=== PATIENT | male | born 1960 | race Caucasian/White ===

== ENCOUNTER 2021-05-16 11:38 | Outpatient (REF) | payer OTHER, SELFPAY ==
[2021-05-16 14:32] LABS: Binax Internal Control QC Valid; Binax Lot number: 9864; Binax Now Covid-19 Ag Positive (Negative)
== END 2021-05-16 11:39 | disposition home or self-care (01) ==
LOC: HO.LAB 11:38
PROVIDERS: Visit Provider Internal Medicine
DX: Z20.822 Contact with and (suspected) exposure to COVID-19 (principal)
CPT/HCPCS: 36415; C9803

== ENCOUNTER → 2025-01-25 08:48 | Outpatient (BNVA) | payer OTHER, SELFPAY | PROVIDERS: PCP Internal Medicine; Visit Provider Physician Assistant Medical | DX: M71.162 Other infective bursitis, left knee (principal) | CPT/HCPCS: 99203 ==

== ENCOUNTER → 2025-01-28 07:51 | Outpatient (BNVA) | payer OTHER, SELFPAY | PROVIDERS: PCP Internal Medicine; Visit Provider Physician Assistant Medical | DX: M71.162 Other infective bursitis, left knee (principal); Z02.79 Encounter for issue of other medical certificate | CPT/HCPCS: 99213 ==

== ENCOUNTER 2025-04-20 15:08 | Outpatient (AMB) | payer BC, SELFPAY ==
--- NOTE | 2025-04-20 15:09 | A.PHYSOV_ITS ---
Vital Signs 04/20/25 15:10 Height 5 ft 6.5 in Weight 175 lb BMI 27.8 Intake Visit Reasons: Back pain Intake Note: Patient is a 64 year old male here for back pain. 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 Redding is a 64-year-old male seen in evaluation today for lumbar radiculitis to bilateral lower extremities. He underwent bilateral L4 TFESI 12/11/2024. He reports 3-1/2 months of 80% reduction of his pain. Patient's pain has returned despite performing physician directed home exercise plan and using his medications as prescribed. Patient is requesting repeat bilateral L4 TFESI. L5-S1 PAPI has not been helpful. An MRI of the patient does have severe neuroforaminal stenosis at L4-5 with nerve root compression. He has a pain level today of 8/10. [facility] Surgical History (Updated 04/19/25 @ 10:20 by Halle Sparks MA) History of carpal tunnel surgery Social History Alcohol intake: current Alcohol intake frequency: does not drink Patient Tobacco Use Status: Former Tobacco user Review of Systems Narrative Lumbar radiculopathy bilateral lower extremities [id number]. No incontinence, saddle anesthesia urinary retention. Physical Exam Exam Exam: Lumbar Spine: Examination of his lumbar spine, there is no visible swelling or deformity. He is tender to left lower lumbar facets. Has full range of motion of his lumbar spine. He does have an increase in pain with facet loading. Special Tests: Lhermittes sign was negative Heel Toe walk is normal Left straight leg raise: Negative Right straight leg raise: Positive right Special tests Katheryn test is negative Ganslen's test is negative SI Joint compression test negative Aishwarya test negative Piriformis stretch is negative Lower Extremities: Full range of motion bilateral lower extremities. No calf pain or edema. Neuro: Sensation: Intact to lower extremities bilaterally Strength L2 (Psoas): 5/5 on the left and 5/5 on the right. L3 (Quads): 5/5 on the left and 5/5 on the right. L4 (Ant tibialis): 5/5 on the left and 5/5 on the right. L5 (EHL) 5/5 on the left and 5/5 on the right. S1 (Gastroc): 5/5 on the left and 5/5 on the right. DTR L4: (Patellar) Left 1 Right 1 S1: (Achilles) Left 1 Right 1 Babinski Downgoing No pathologic clonus. No involuntary movement. Vital Signs: BMI result Body Mass Index 27.8 Assessment & Plan Assessment & Plan (1) Lumbar radiculopathy: Code(s): M54.16 - Radiculopathy, lumbar region Category: Medical (2) Lumbar spondylosis: Code(s): M47.816 - Spondylosis without myelopathy or radiculopathy, lumbar region Category: Medical Plan Mr. Redidng is a 64-year-old male seen in evaluation today for lumbar radiculitis to bilateral lower extremities right greater than left. She responded very well to bilateral L4 TFESI in December. Patient has been performing physician directed home exercise plan and using his medications as prescribed. At this point I recommend repeating the bilateral L4 TFESI and he is eager to proceed. We will obtain prior authorization for his injection and contact him once we have done so. We discussed the benefits of proper nutrition and exercise to maintain a healthy body weight to improve longevity and function. We also discussed the benefits of proper lifting techniques, core strengthening and proper posture. Thank you for allowing me to participate in the care of your patient. Coding Level of Care Code Est Pt Level 3 (59732) Diagnoses Lumbar radiculopathy M54.16 Lumbar spondylosis M47.816
[2025-04-20 15:10] VITALS: BMI 27.8
--- OUTSIDE RECORDS SUMMARY | 2025-04-20 21:30 | XMS_ITS ---
Author Name [facility] Organization Unknown Care Team Organization Name Specialty Phone Email Start Date End Da te [facility] 07/18/202212/11 [facility] 03/20/20222023
--- OUTSIDE RECORDS SUMMARY | 2025-04-20 21:30 | XMS_ITS | Clinical Summary ---
Author Organization [address] [facility] Address [address] [place] [address] Phone Care Team Providers Care Wax Blender Name Role Phone Mayo Harper MD Primary Care Provider Allergies No known active allergies Medications blood-glucose meter kit Use to test blood sugars three times a day 03/11/20 19 Active FREESTYLE LANCETS MISC Use to test blood sugar 3 times a day before meals. 11/19/19 14 Active blood sugar diagnostic (FreeStyle Lite Strips) test strip TEST 3 TIMES A DAY BEFORE MEALS 09/25/19 24 Active magnesium oxide (MAG-OX) 400 mg (241.3 elemental magnesium) tablet Take 1 Tablet by mouth 2 times daily. 01/22/20 24 Active glucose blood test strip Use as instructed 100 each 11 07/29/19 25 026 Active blood-glucose meter misc Use daily or as directed for monitoring of diabetes. 1 each 07/29/19 25 026 Active acetaminophen (TYLENOL 8 HOUR) 650 mg 8 hr tablet Take 1 tablet (650 mg total) by mouth 3 (three) times a day if needed for headaches. Do not crush, chew, or split. 30 tablet 12/24/19 25 Active omeprazole OTC (PriLOSEC OTC) 20 mg EC tablet Take 1 tablet (20 mg total) by mouth 1 (one) time each day. Do not crush, chew, or split. 01/08/20 25 Active lisinopriL (PRINIVIL,ZEST RIL) 10 mg tablet TAKE 1 TABLET BY MOUTH TWICE A DAY 180 tablet 1 03/19/20 25 Active atorvastatin (LIPITOR) 40 mg tablet TAKE 1 TABLET BY MOUTH 1 TIME EACH DAY. 90 tablet 03/22/20 25 Active metFORMIN (GLUCOPHAGE) 500 mg tablet TAKE 1 TABLET BY MOUTH TWICE A DAY WITH MEALS 180 tablet 03/22/20 25 Active cholecalcifero l (Vitamin D3) 50 mcg (2,000 unit) tablet Take 1 tablet (2,000 Units total) by mouth 1 (one) time each day. 90 tablet 04/01/20 25 Active metFORMIN (GLUCOPHAGE) 500 mg tablet Take 1 tablet (500 mg total) by mouth 2 (two) times a day with meals. 180 tablet 1 07/09/19 25 025 Discontinued atorvastatin (LIPITOR) 40 mg tablet TAKE 1 TABLET BY MOUTH 1 TIME EACH DAY. 90 tablet 1 09/29/19 25 025 Discontinued Vitamin D3 50 mcg (2,000 unit) tablet TAKE 1 TABLET BY MOUTH EVERY DAY 90 tablet 12/24/19 25 025 Discontinued(Re order) Active Problems Problem Noted Date Diagnosed Date Gastritis 03/24/2024 Globus sensation 03/24/2024 Heartburn 03/24/2024 Postprandial epigastric pain 03/24/2024 Hypomagnesemia 09/23/2023 Chronic midline low back pain without sciatica 0 06/11/2022 Osteoarthritis of spine with radiculopathy, lumb ar region 04/08/2019 Spondylolisthesis at L4-L5 level 04/08/2019 Gastric polyp 08/26/2017 Overview (03/24/2024): Endoscopy 08/22/17 - gastric polyps removed, follow-up GI clinic in 4 weeks BPH (benign prostatic hyperplasia) 02/14/2015 Carpal tunnel syndrome 11/18/2013 Overview (03/24/2024): Hand Surgery - 05/20/15 - left endoscopic carpal tunnel release Overweight 05/08/2013 Primary hypertension 08/22/2011 Assessment & Plan (07/09/2024 2:38 PM EST): Blood pressure is slightly elevated in the office today. Patient is positive for URI and persistent coughing, which could be contributing to his elevated blood pressure. Patient is to refrain from taking OTC cough medicine. Will reevaluate blood pressure at next office visit. In the meantime he is to maintain a low-salt diet. Diabetes mellitus type 2 with neurological manif estations 10/24/2010 Overview (03/24/2024): Last Assessment & Plan: Checking Your Blood Sugars Please check your blood sugars every day. Please check your sugars at the following times of day: before breakfast and after dinner Your Blood Sugar Goals Pre Meal: 90-130 2 hours after meals: 110-160 Bedtime: 110-150 Use the Results Bring your glucometer to every appointment Write your fingerstick blood sugars down on a log sheet or record book. Bring them to your appointment Look for patterns in the numbers. The results help you and your provider make decisions about your diabetes treatment plan. Your Results and your Goals Your Result / Date of Completion Your Goal / How Often to Assess Component Value Date HGBA1C 6.7 03/20/2011 Less than 7%--- 2-4 times per year BP Readings from Last 1 Encounters: 05/16/11 148/70 Less than 130/80--- once per year Component Value Date LDL 191 03/20/2011 LDL less than 100--- once per year Component Value Date MALBUR 9.3 03/20/2011 Less than 30--- once per year Wt Readings from Last 1 Encounters: 05/16/11 209 lb 4.8 oz (94.938 kg) Your goal weight by next visit: 205 --- reassess 2-4 times a year Health Maintenance Due Topic Date Due ? Diabetes: Annual Care Plan 07/27/1979 Your Action Plan Check blood glucose as directed and write down all results. Check feet for sores every day Contact me if you experience any barriers to care such as inability to purchase your medication, difficulty getting to your appointments or difficulty understanding your care plan Please get your yearly flu shot When to Call your Healthcare Provider If your blood sugar falls below 70 and you do not know why or you become unconscious If you are sick and unable to take liquids because or nausea or vomiting If you have a fever over 101 If your blood sugar is 300 or higher on greater than 3 separate occasions during the same week If you are just unsure what to do Educational Resources [employer] [employer] (www.diabetes.org) Centers for Disease Control and Prevention (www.cdc.gov/diabetes) This care plan was created in collaboration with Ashutosh Soria on 05/16/2011 Mixed hyperlipidemia 09/23/2009 GERD (gastroesophageal reflux disease) 0 H. pylori infection 08/03/2009 Hypertriglyceridemia 08/04/2008 Immunizations Immunization Administration Dates Next Due Influenza Quadravalent, MDCK , 0.5ml, preservative free (Flucelvax) 6mo and older 02/24/2021,01/16/2019 Influenza Quadravalent, MDCK , 0.5ml, with preservative (Flucelvax) 6mo and older 03/26/2017 Influenza trivalent, 0.5mL, preservative free (Fluarix; FluLaval; Fluzone) ages 6mo and older (Afluria) 3 years and older 02/13/2016,02/23/2014 Influenza trivalent, recombi nant, 0.5mL, preservative free (Flublok) 9yo and older 01/28/2025 Influenza, Unspecified 02/21/2022,02/15/2018,05/2014 Moderna SARS-CoV-2 COVID-19, mRNA, LNP-S, preservative free 01/01/2021,12/04/2020 Pneumococcal polysaccharide 23 valent (Pneumovax 23) 2yo and older 02/23/2014 Td Tetanus diptheria (Tdvax) 7yo and older 03/02 Tdap Tetanus diptheria acell ular pertussis (Boostrix; Adacel) 7yo and older 05/17/2023,08/28/2012 Surgical History Surgery Date Site/Laterality Comments WISDOM TOOTH EXTRACTION PROCEDURE: HISTORICAL WISDOM TEETH EXTRACTION ESOPHAGOGASTRODUODENOSCOPY 12/16/2009 PROCEDURE: IN EGD TRANSORAL BIOPSY SINGLE/MULTIPLE; COMMENT: Normal esophagus, Gastritis-biopsy:focal intestinal metaplasia (Hpylori -), Nl duodenum-bx: nl COLONOSCOPY 11/15/11 PROCEDURE: HISTORICAL COLONOSCOPY; COMMENT: normal; repeat in ten yrs OTHER SURGICAL HISTORY 06/23/15 Left PROCEDURE: ---- OTHER ----; COMMENT: CTS release ESOPHAGOGASTRODUODENOSCOPY 08/22/2017 PROCEDURE: IN EGD TRANSORAL BIOPSY SINGLE/MULTIPLE; COMMENT: -santy and gastric polyp. ESOPHAGOGASTRODUODENOSCOPY 06/26/2019 PROCEDURE: IN EGD TRANSORAL BIOPSY SINGLE/MULTIPLE; COMMENT: -gastritis. Biopsies show chronic gastritis without dysplasia. Negative for H. pylori. Medical History Medical History Date Comments Heartburn DX:Heartburn H. pylori infection DX:H. pylori infection; COMMENT: History of H. pylori in 2009 Postprandial epigastric pain DX: Postprandial epigastric pain Globus sensation DX:Globus sensa tion Gastritis DX:Gastritis Hyperlipidemia DX:Hyperlipidemi a Essential hypertension DX:Essent ial hypertension Esophageal reflux DX:Esophageal reflux Diabetes mellitus type 2, co ntrolled, with complications ([facility] V24, [facility] V28) DX:Diabetes mellitus type 2, controlled, with complications ([facility]) Family History Medical History Relation Name Comments Arthritis Brother Diabetes Brother Stroke Father Diabetes Mother CHF Arthritis Sister 1 Drug abuse Sister 1 Drug abuse Sister 2 Hyperlipidemia Sister 3 Relation Name Status Comments Brother Alive DM Father (Age 87) STROKE Mother (Age 64) CHF DM Sister 1 CHOLESTEROL Sister 2 Sister 3 Alive Sister 4 Alive Social History Tobacco Use Types Packs/Day Years Used Date Smoking Tobacco: Former Cigarettes 1 Q uit: 04/08/2008 Smokeless Tobacco: Never Tobacco Cessation:Counseling Given: Not Answered Alcohol Use Standard Drinks/Week Comments Yes 0 (1 standard drink = 0.6 oz pur e alcohol) Housing Instability Answer Date Recorde d Are you worried that in the next 2 months you may not have stable housing? No 07/20/2024 Food Access & Nutrition Answer Date Rec orded Do you have access to a vari ety of food including fruits and vegetables? Yes 07/20/2024 Access to Healthcare Answer Date Record ed Within the last 3 months, ho w many times did you visit the emergency department for your medical care? 0 07/20/2024 Health Literacy Answer Date Recorded How often do you need to hav e someone help you when you read instructions, pamphlets, or other written material from your doctor or pharmacy? Never 07/20/2024 Caregiver: How often do you need to have someone help you when you read instructions, pamphlets, or other written material from your doctor or pharmacy? Not on file 07/20/2024 Financial Risk Answer Date Recorded How hard is it for you to pa y for the very basics like food, housing, medical care, and air conditioning / heating? Not very hard 07/20/2024 Transportation Answer Date Recorded Has the lack of transportati on kept you from meetings, work, or from getting things needed for daily living? No Has the lack of transportati on kept you from medical appointments or from getting medications? No 07/20/2024 Social Isolation Answer Date Recorded How often do you feel lonely or isolated from th ose around you? Never 07/20/2024 Food Risk Answer Date Recorded Within the past 12 months we worried whether our food would run out before we got money to buy more. Never true 07/20/2024 Within the past 12 months th e food we bought just didn't last and we didn't have money to get more. Never true 07/20/2024 Dependent Care Answer Date Recorded Do you need help finding or paying for care for your loved ones. For example, exceptional children's teacher or elderly care for an older adult? No 07/20/2024 Education Answer Date Recorded Do you think completing more education or training, like finishing a GED, going to college, or learning a trade, would be helpful for you? No 07/20/2024 Employment and Income Answer Date Recor ded During the last four weeks, have you been actively looking for work? No 07/20/2024 Living Situation Answer Date Recorded What is your living situation? Unrecognized valu e 07/20/2024 Sex and Gender Information Value Date Recorded Sex Assigned at Not on file Legal Sex Male 2:09 AM EST Gender Identity Not on file Sexual Orientation Not on file Last Filed Vital Signs Vital Sign Reading Time Taken Comments Blood Pressure 114/71 01/07/2025 9:51 AM EDT Pulse 81 01/07/2025 9:51 AM EDT Temperature 36.7 C (98.1 F) 01/07/2025 9:51 AM EDT Respiratory Rate 14 01/07/2025 9:51 AM EDT Oxygen Saturation 97% 07/09/2024 11:54 AM EST Inhaled Oxygen Concentration - - Weight 80.7 kg (178 lb) 01/07/2025 9:51 AM EDT Height 167.6 cm (5' 6 ) 01/07/2025 9:51 AM EDT Body Mass Index 28.73 01/07/2025 9:51 AM EDT Plan of Treatment Upcoming Encounters Date Type Department Care Team (Late st Contact Info) Description 04/27/2025 3:30 PM EST Office Visit Adult Medicine [facility] [address], [place] [phone] Mayo Harper MD [address] [place] [address] Health Maintenance Due Date Last Done Comments Diabetes: Annual Foot Exam 07/27/1971 Diabetes: Annual Retina Eye Exam 07/27/1971 Zoster Vaccines (1 of 2) 07/27/2011 Pneumococcal Vaccine: 50+ Years (2 of 2 - PCV) 02/23/2015 02/23/2014 HIV Screening 04/21/2022 COVID-19 Vaccine ( season) 2025 01/01/2021, 12/04/2020 Diabetes: Blood Sugar Control Test (HGBA1C) 07/10/2025 01/08/2025, 07/24/2024, 01/22/2024, Additional history exists Social Influencers of Health Screening 07/20/2025 07/20/2024 Diabetes: Annual Urine Albumin-Creatinine Ratio (uACR) 01/08/2026 01/08/2025, 07/27/2024, 09/23/2023 Diabetes: Annual GFR (Glomerular Filtration Rate) 01/08/2026 01/08/2025, 07/24/2024, 09/23/2023, Additional history exists Hypertension/CHF/CAD Annual BMP Blood Test 01/08/2026 01/08/2025, 07/24/2024, 09/23/2023, Additional history exists Cholesterol Screening (Lipid Panel) 01/08/2030 01/08/2025, 05/24/2023 Colorectal Cancer Screening: Colonoscopy 12/17/2032 12/17/2022 DTaP,Tdap,and Td Vaccines (4 - Td or Tdap) 05/17/2033 05/17/2023, 08/28/2012, 03/02/2008 RSV Immunization Adult Patients (1 - 1-dose 75+ series) 2036 Hepatitis C Screening Completed 08/29/2015 Depression Screening Completed 07/20/2024 Influenza Vaccine Completed 01/28/2025, , 02/21/2022, Additional history exists HIB Vaccines Aged Out No longer eligi ble based on patient's age to complete this topic HPV Vaccines Aged Out No longer eligi ble based on patient's age to complete this topic Hepatitis A Vaccines Aged Out No long er eligible based on patient's age to complete this topic Hepatitis B Vaccines Aged Out No long er eligible based on patient's age to complete this topic IPV Vaccines Aged Out No longer eligi ble based on patient's age to complete this topic MMR Vaccines Aged Out No longer eligi ble based on patient's age to complete this topic Meningococcal ACWY Vaccine Aged Out N o longer eligible based on patient's age to complete this topic Meningococcal B Vaccine Aged Out No l onger eligible based on patient's age to complete this topic RSV Immunization Patients Under 20 months Aged Out No longer eligible based on patient's age to complete this topic Varicella Vaccines Aged Out No longer eligible based on patient's age to complete this topic Procedures Procedure Name Priority Date/Time Associated Diagnosis Comments MICROALBUMIN CREATININE URINE RATIO Routine 01/08/2025 8:02 AM EDT Type 2 diabetes mellitus with diabetic microalbuminuria, without long-term current use of insulin ([facility] V24, [facility] V28) Primary hypertension Mixed hyperlipidemia Hypomagnesemia Gastroesophageal reflux disease without esophagitis Chronic midline low back pain without sciatica Screening for prostate cancer BASIC METABOLIC PANEL Routine 01/08/2025 8:02 AM EDT Type 2 diabetes mellitus with diabetic microalbuminuria, without long-term current use of insulin ([facility] V24, [facility] V28) Primary hypertension Mixed hyperlipidemia Hypomagnesemia Gastroesophageal reflux disease without esophagitis Chronic midline low back pain without sciatica Screening for prostate cancer HEMOGLOBIN A1C Routine 01/08/2025 8:02 AM EDT Type 2 diabetes mellitus with diabetic microalbuminuria, without long-term current use of insulin ([facility] V24, [facility] V28) Primary hypertension Mixed hyperlipidemia Hypomagnesemia Gastroesophageal reflux disease without esophagitis Chronic midline low back pain without sciatica Screening for prostate cancer LIPID PANEL WITH REFLEX TO DIRECT LDL Routine 01/08/2025 8:02 AM EDT Type 2 diabetes mellitus with diabetic microalbuminuria, without long-term current use of insulin ([facility] V24, [facility] V28) Primary hypertension Mixed hyperlipidemia Hypomagnesemia Gastroesophageal reflux disease without esophagitis Chronic midline low back pain without sciatica Screening for prostate cancer COLONOSCOPY Routine 12/17/2022 HEPATITIS C SCREENING Routine 08/29/2015 from Last 3 Months or Most Recently Relevant to Health Maintenance Results * (ABNORMAL) Lipid panel with reflex to direct LDL (01/08/2025 8:02 AM EDT) Cholesterol 167 0 - 200 mg/dL LAB CHEMISTRY METHOD 01/08/2025 10:28 AM [facility] Triglycerides 173(H) 0 - 150 mg/dL LAB CHEMISTRY METHOD 01/08/2025 10:28 AM [facility] HDL 51 >=40 mg/dL LAB CHEMISTRY METHOD 01/08/2025 10:28 AM [facility] LDL Calculated 81 0 - 100 mg/dL LAB CHEMISTRY METHOD 01/08/2025 10:28 AM [facility] Comment:Estimated LDL Calcul ated using equation: Total cholesterol - HDL cholesterol - (Triglycerides/5) VLDL Cholesterol Carlos 34.6 mg/dL LAB CHEMISTRY METHOD 01/08/2025 10:28 AM [facility] Non HDL Chol. (LDL+VLDL) 116 <145 mg/dL LAB CHEMISTRY METHOD 01/08/2025 10:28 AM [facility] Chol/HDL Ratio 3.3 0.0 - 4.4 LAB CHEMISTRY METHOD 01/08/2025 10:28 AM [facility] Blood Venous blood specimen / Unknown Venipuncture / Unknown 01/08/2025 8:02 AM EDT 01/08/2025 8:02 AM EDT Mayo Harper MD LAB BLOOD ORDERABLES Final Result [facility] [address] [place] [address], [place] [phone] * Microalbumin creatinine urine ratio (01/08/2025 8:02 AM EDT) Creatinine, Urine 81.0 mg/dL LAB CHEMISTRY METHOD 01/08/2025 11:01 AM EDT [facility] Microalb, Ur 6.6 0.0 - 29.0 mg/L LAB CHEMISTRY METHOD 01/08/2025 11:01 AM EDT [facility] Microalb/Creat Ratio 8 <30 mg/g creat LAB CHEMISTRY METHOD 01/08/2025 11:01 AM EDT [facility] Urine Urine specimen obtained by clean catch procedure / Unknown Non-blood Collection / Unknown 01/08/2025 8:02 AM EDT 01/08/2025 8:02 AM EDT Mayo Harper MD LAB URINE ORDERABLES Final Result Performing Organization Address [facility]/ZIP Co de Phone Number [facility] [address] [place] [address], [place] [phone] * (ABNORMAL) Hemoglobin A1c (01/08/2025 8:02 AM EDT) Hemoglobin A1C 7.7(H) <6.5 % LAB CHEMISTRY METHOD 01/08/2025 1:38 PM EDT [facility] Mean Bld Glu Estim. 174 mg/dL LAB CHEMISTRY METHOD 01/08/2025 1:38 PM EDT [facility] Blood Venous blood specimen / Unknown Venipuncture / Unknown 01/08/2025 8:02 AM EDT 01/08/2025 8:02 AM EDT us Mayo Harper MD LAB BLOOD ORDERABLES Final Result [facility] [address] [place] [address], [place] [phone] * (ABNORMAL) Basic metabolic panel (01/08/2025 8:02 AM EDT) Sodium 132(L) 133 - 145 mmol/L LAB CHEMISTRY METHOD 01/08/2025 10:28 AM [facility] Potassium 5.1 3.5 - 5.5 mmol/L LAB CHEMISTRY METHOD 01/08/2025 10:28 AM [facility] Chloride 99 96 - 110 mmol/L LAB CHEMISTRY METHOD 01/08/2025 10:28 AM [facility] CO2 28 21 - 32 mmol/L LAB CHEMISTRY METHOD 01/08/2025 10:28 AM [facility] Anion Gap 5 3 - 11 LAB CHEMISTRY METHOD 01/08/2025 10:28 AM [facility] Glucose 120(H) 70 - 100 mg/dL LAB CHEMISTRY METHOD 01/08/2025 10:28 AM [facility] BUN 18 5 - 25 mg/dL LAB CHEMISTRY METHOD 01/08/2025 10:28 AM [facility] Creatinine 1.00 0.70 - 1.30 mg/dL LAB CHEMISTRY METHOD 01/08/2025 10:28 AM [facility] eGFR 85 >=60 mL/min/1. 73m2 LAB CHEMISTRY METHOD 01/08/2025 10:28 AM [facility] Comment:Calculation based on the Chronic Kidney Disease Epidemiology Collaboration (CKD-EPI) equation refit without adjustment for race. BUN/Creatinine Ratio 18.0 LAB CHEMISTRY METHOD 01/08/2025 10:28 AM EDT [facility] Calcium 9.1 8.5 - 10.5 mg/dL LAB CHEMISTRY METHOD 01/08/2025 10:28 AM EDT [facility] Blood Venous blood specimen / Unknown Venipuncture / Unknown 01/08/2025 8:02 AM EDT 01/08/2025 8:02 AM EDT Mayo Harper MD LAB BLOOD ORDERABLES Final Result [facility] [address] [place] [address], [place] [phone] * Colonoscopy (12/17/2022) [facility] Colonoscopy No Interpretation , Abstracted Anatomical Region Laterality Modality Other Historical Provider HEALTH MAINTENANCE Final Result * Hepatitis C Screening (08/29/2015) [facility] Hepatitis C Screening Abstracted Historical Provider HEALTH MAINTENANCE Final Result from Last 3 Months or Most Recently Relevant to Health Maintenance Insurance [facility] Care Teams Wax Blender Relationship Specialty Start Date End Date Mayo Harper MD [address] [place] [address] PCP - General Internal Medicine 09/12/21
== END 2025-04-20 15:50 | disposition home or self-care (01) ==
LOC: HO.HPHYS 15:08
PROVIDERS: PCP Internal Medicine; Visit Provider Physician Assistant
DX: M54.16 Radiculopathy, lumbar region (principal); M47.816 Spondylosis without myelopathy or radiculopathy, lumbar region
CPT/HCPCS: 99213